=== PATIENT | female | born 1975 | race Caucasian/White ===

== ENCOUNTER 2020-07-14 14:29 | Emergency (ER) | payer OTHER ==
[2020-07-14 15:48] LABS: HEMOGLOBIN 12.9 gm/dl (12.3-15.3); RED BLOOD COUNT 5.02 M/UL (4.00-5.10)
[2020-07-14 16:12] LABS: BUN/CREATININE RATIO 15 (0-10)
== END 2020-07-14 17:20 | disposition left against medical advice (07) ==
LOC: ER1 14:29
PROVIDERS: Physician Assistant
DX: R13.10 Dysphagia, unspecified (principal); R11.2 Nausea with vomiting, unspecified; E11.9 Type 2 diabetes mellitus without complications; I10 Essential (primary) hypertension; K21.9 Gastro-esophageal reflux disease without esophagitis
CPT/HCPCS: 80053; 85025; 99284; Q9967